=== PATIENT | male | born 1955 | race Caucasian/White ===

== ENCOUNTER 2017-01-13 09:00 | Day surgery (SDC) | payer OTHER ==
[2017-01-12 15:13] VITALS: BMI 29.9
[2017-01-13 09:23] VITALS: BP 115/75; PULSE 60; TEMP 97.8
[2017-01-13 09:26] LABS: BASOPHIL 1.7 % (0-2.0); EOSINOPHIL 7.4 % (0-4.5); MCH 29.8 pg (25.7-33.7); MEAN CELL VOLUME 90.3 fl (80-96); MEAN PLT VOLUME 7.7 fl (7.5-11.1); NEUTROPHILS 42.6 % (42.8-82.8); PLATELET COUNT 234 K/MM3 (134-434); RDW 13.8 % (11.9-15.9); WHITE BLOOD COUNT 5.1 K/mm3 (4.0-10.0)
[2017-01-13 09:30] LABS: INR 1.07 (0.82-1.09); PROTHROMBIN TIME (PATIENT) 11.8 SEC (9.98-11.88)
== END 2017-01-13 12:52 | disposition home or self-care (01) ==
LOC: JRADIR 09:00
PROVIDERS: ATTEND Specialist
PROC: BW4FZZZ Ultrasonography of Neck (ICD-10-PCS; principal; 2017-01-13)
PROC: 07B23ZX Excision of Left Neck Lymphatic, Percutaneous Approach, Diagnostic (ICD-10-PCS; 2017-01-13)
DX: R22.1 Localized swelling, mass and lump, neck (principal); Z53.8 Procedure and treatment not carried out for other reasons
CPT/HCPCS: 36415; 76536-TC; 85025; 85610

== ENCOUNTER 2018-06-02 22:02 | Emergency (ER) | payer OTHER ==
[2018-06-02 22:16] VITALS: BMI 29.9
--- NOTE | 2018-06-03 02:41 | PDOC ---
History of Present Illness - General History Source: Patient, Spouse Exam Limitations: No Limitations - History of Present Illness Initial Comments: 06/03/18 03:32 The patient is a 63 year old male, with a significant past medical history of mesothelioma, GERD, and recent 7 day admission for constipation at [facility] who presents to the emergency department with, abdominal pain and vomiting. As per patient and his at bedside, he was recently admitted to [facility] for constipation and discharged 06/01 on Lactulose, Milk of magnesia, miralax, and a suppository. notes at 10pm 06/02 the patient began vomiting with his abdominal pain. He denies any recent fevers, chills, headache or dizziness. He denies any recent chest pain or shortness of breath. He denies any recent dysuria, frequency, urgency or hematuria. Allergies: NKDA Primary Care Physician: Dr. Andrea Krause ([facility]) <Rm Onofre - Last Filed: 06/03/18 04:01> <Mercedez Perez - Last Filed: 06/03/18 06:15> - General Stated Complaint: Nausea/Vomiting Time Seen by Provider: 06/03/18 02:41 Past History <Rm Onofre - Last Filed: 06/03/18 04:01> - Past Medical History Cancer: Yes (MESOTHELIOMA) COPD: No GI Disorders: Yes (REFLUX) - Surgical History Abdominal Surgery: Yes (umbillical hernia, vasectomy) - Immunization History Immunization Up to Date: Yes - Suicide/Smoking/Psychosocial Hx Smoking History: Never smoked Have you smoked in the past 12 months: No Number of Cigarettes Smoked Daily: 0 Cigars Per Day: 0 Hx Alcohol Use: No Drug/Substance Use Hx: No Substance Use Type: None Hx Substance Use Treatment: No <Mercedez Perez - Last Filed: 06/03/18 06:15> - Past Medical History Allergies/Adverse Reactions: Allergies Allergy/AdvReac Type Severity Reaction Status Date / Time No Known Allergies Allergy Verified 06/02/18 22:16 Home Medications: Ambulatory Orders Omeprazole 20 mg PO DAILY 01/12/17 Review of Systems - Review of Systems Able to Perform ROS?: Yes Comments:: 06/03/18 03:32 GENERAL/CONSTITUTIONAL: No fever or chills. No weakness. HEAD, EYES, EARS, NOSE AND THROAT: No change in vision. No ear pain or discharge. No sore throat. +GASTROINTESTINAL: Nausea, vomiting, abdominal pain. GENITOURINARY: No dysuria, frequency, or change in urination. CARDIOVASCULAR: No chest pain or shortness of breath. RESPIRATORY: No cough, wheezing, or hemoptysis. MUSCULOSKELETAL: No joint or muscle swelling or pain. No neck or back pain. SKIN: No rash NEUROLOGIC: No headache, vertigo, loss of consciousness, or change in strength/ sensation. ENDOCRINE: No increased thirst. No abnormal weight change. HEMATOLOGIC/LYMPHATIC: No anemia, easy bleeding, or history of blood clots. ALLERGIC/IMMUNOLOGIC: No hives or skin allergy. All Other Systems: Reviewed and Negative <Rm Onofre - Last Filed: 06/03/18 04:01> *Physical Exam - Vital Signs Last Vital Signs Temp Pulse Resp BP Pulse Ox 98.1 F 79 18 113/75 97 06/02/18 22:10 06/02/18 22:10 06/02/18 22:10 06/02/18 22:10 06/02/18 22:10 <Rm Onofre - Last Filed: 06/03/18 04:01> - Vital Signs Last Vital Signs Temp Pulse Resp BP Pulse Ox 98.1 F 79 18 113/75 97 06/02/18 22:10 06/02/18 22:10 06/02/18 22:10 06/02/18 22:10 06/02/18 22:10 - Physical Exam Comments: 06/03/18 06:09 GENERAL: Awake, in no acute distress HEAD: No signs of trauma EYES: PERRLA, EOMI, sclera anicteric, conjunctiva clear, visual acuity grossly intact ENT:mucous membranes moist NECK: Normal ROM, supple, no lymphadenopathy, JVD LUNGS: Breath sounds equal, clear to auscultation bilaterally. No wheezes, and no crackles. Normal work of breathing. HEART: Regular rate and rhythm, normal S1 and S2, no murmurs, rubs or gallops ABDOMEN: Softly distended with diffuse tenderness, decreased bowel sounds all 4 quadrants, no rebound tenderness : CHEST WALL: BACK: No midline tenderness. EXTREMITIES: Normal range of motion, no edema. No clubbing or cyanosis. No erythema, or tenderness NEUROLOGICAL: Alert, and fully oriented x4, Cranial nerves II through XII grossly intact. Normal speech, normal gait. DTR's 2/4 bilaterally. SKIN: Warm, Dry, normal turgor, no rashes or lesions noted. <Mercedez Perez - Last Filed: 06/03/18 06:15> Moderate Sedation - Procedure Monitoring Vital Signs: Procedure Monitoring Vital Signs Temperature 98.1 F 06/02/18 22:10 Pulse Rate 79 06/02/18 22:10 Respiratory Rate 18 06/02/18 22:10 Blood Pressure 113/75 06/02/18 22:10 O2 Sat by Pulse Oximetry (%) 97 06/02/18 22:10 <Rm Onofre - Last Filed: 06/03/18 04:01> - Procedure Monitoring Vital Signs: Procedure Monitoring Vital Signs Temperature 98.1 F 06/02/18 22:10 Pulse Rate 79 06/02/18 22:10 Respiratory Rate 18 06/02/18 22:10 Blood Pressure 113/75 06/02/18 22:10 O2 Sat by Pulse Oximetry (%) 97 06/02/18 22:10 <Mercedez Perez - Last Filed: 06/03/18 06:15> Heart Score/ECG Review - ECG Intrepretation Rhythm: Regular Rhythm Comment:: 06/03/18 06:11 EKG shows a normal sinus rhythm at 80 bpm axis with no acute ST elevations There is diffuse T-wave flattening <Mercedez Perez - Last Filed: 06/03/18 06:15> ED Treatment Course - LABORATORY CBC & Chemistry Diagram: 06/03/18 03:19 06/03/18 03:19 <Rm Onofre - Last Filed: 06/03/18 04:01> - LABORATORY CBC & Chemistry Diagram: 06/03/18 03:19 06/03/18 03:19 <Mercedez Perez - Last Filed: 06/03/18 06:15> Medical Decision Making - Medical Decision Making 06/03/18 04:01 EXAM: CT ABDOMEN \T\ PELVIS CT W/O CONTR HISTORY: Abdominal pain and vomiting COMPARISON: None. FINDINGS: Abdomen Liver: Normal Spleen: Normal Pancreas: Normal Gallbladder: There is some increased attenuation in the gallbladder suggesting the presence of stones, or sludge Stomach: There is a small hiatal hernia Small bowel: Normal Large bowel: There is a large amount of retained fecal material in the colon with mild distention Appendix: Normal Adrenals:Normal Kidneys: Normal Vascular: Normal Lymphatic: Normal Peritoneal: No free peritoneal air or fluid Pelvis: Prostate: normal Rectum: Normal Bladder: Normal The inferior thorax: There is some circumferential pleural thickening surrounding the lingula and left lower lobe. There is some focal airspace consolidation and mild bronchiectasis in the dependent left lower lobe General: Skeletal: Normal Abdominal wall: Pelvic sidewall fat extends into the left inguinal canal. There is some stranding in the herniated fat IMPRESSION: Left lower lobe airspace opacity with some fibrosis and bronchiectasis possibly related to chronic aspiration or recurrent inflammation. Complex lobulated pleural fluid collection surrounding the lingula and left lower lobe. Density suggests solid features, possibly neoplastic involvement. Correlation with history and prior studies is recommended. One or more of the following dose reduction techniques were used: automated exposure control, adjustment of the mA and/or kV according to patient size, use of iterative reconstructive technique. Read by: Enrique Lawson MD <Rm Onofre - Last Filed: 06/03/18 04:01> - Medical Decision Making 06/03/18 06:12 63-year-old male with abdominal pain and vomiting CT scan suggests fecal impaction though there is evidence of gallbladder disease Patient does have right upper quadrant tenderness and clinically cholecystitis cannot be ruled out Right upper quadrant ultrasound has been ordered and is pending, to be signed out to day shift <Mercedez Perez - Last Filed: 06/03/18 06:15> *DC/Admit/Observation/Transfer - Attestations Scribe Attestion: 06/03/18 03:33 Documentation prepared by Rm Onofre, acting as medical billing manager for Mercedez Perez DO. <Rm Onofre - Last Filed: 06/03/18 04:01> - Attestations Physician Attestion: 06/03/18 06:14 I, Dr Mercedez Perez, attest that this document has been prepared under my direction and personally reviewed by me in its entirety. I further attest, that it accurately reflects all work, procedures and medical decision making performed by me. <Mercedez Perez - Last Filed: 06/03/18 06:15> Diagnosis at time of Disposition: Abdominal pain, Constipation - Referrals Referrals: Krystal Garcia MD [Primary Care Provider] - - Patient Instructions - Post Discharge Activity
[2018-06-03] MEDS ORDERED: morphine CARPU-JECT 4 MG/1 ML DISP.SYRIN IVPUSH ONE (02:42)
[2018-06-03] MEDS ORDERED: ONDANSETRON 4 MG/2 ML VIAL IVPUSH ONE ×2 (02:42→08:52)
[2018-06-03 03:27] LABS: HEMATOCRIT 34.9 % (35.4-49); HEMOGLOBIN 12.3 GM/dL (11.7-16.9); MCH 34.9 pg (25.7-33.7); MCHC 35.1 g/dl (32.0-35.9); MEAN CELL VOLUME 99.4 fl (80-96); PLATELET COUNT 208 K/MM3 (134-434); RBC 3.51 M/mm3 (4.00-5.60); RDW 14.5 % (11.9-15.9); WHITE BLOOD COUNT 4.4 K/mm3 (4.0-10.0)
[2018-06-03 03:56] LABS: ALK PHOS 213 U/L (45-117); ANION GAP 7 MMOL/L (8-16); BILIRUBIN,TOTAL 0.5 mg/dL (0.2-1); BLOOD UREA NITROGEN 8 mg/dL (7-18); CHLORIDE 102 mmol/L (98-107); CO2 29 mmol/L (21-32); CREATININE 0.9 mg/dL (0.55-1.3); GLUCOSE,RANDOM 111 mg/dL (74-106); LIPASE 128 U/L (73-393); POTASSIUM 3.7 mmol/L (3.5-5.1); SGOT/AST 53 U/L (15-37); SGPT/ALT 50 U/L (13-61); SODIUM 138 mmol/L (136-145); TOT PROT 6.9 g/dl (6.4-8.2)
[2018-06-03] MEDS ORDERED: ONDANSETRON 4 MG/2 ML VIAL ONE ×2 (04:38→08:56)
[2018-06-03] MEDS ORDERED: morphine SULFATE 4 MG/ML VIAL ONE (04:38)
[2018-06-03] MEDS ORDERED: SODIUM CHLORIDE 0.9% 500 ML INFUS.BAG IV ONE (08:44)
--- NOTE | 2018-06-03 11:55 | EKG ---
Test Reason : Blood Pressure : / mmHG Vent. Rate : 080 BPM Atrial Rate : 080 BPM P-R Int : 134 ms QRS Dur : 082 ms QT Int : 358 ms P-R-T Axes : 037 003 008 degrees QTc Int : 412 ms NORMAL SINUS RHYTHM NONSPECIFIC T WAVE ABNORMALITY ABNORMAL ECG WHEN COMPARED WITH ECG OF 04-MAR-2016 11:59, NO SIGNIFICANT CHANGE WAS FOUND Confirmed by NIKKI BULLOCK MD ([id number]) on 06/03/2018 11:55:01 AM Referred By: Confirmed By:NIKKI BULLOCK MD
[2018-06-03 14:02] VITALS: BP 98/70; PULSE 74; TEMP 2
== END 2018-06-03 14:16 | disposition home or self-care (01) ==
LOC: JER 22:02
PROC: 3E0337Z Introduction of Electrolytic and Water Balance Substance into Peripheral Vein, Percutaneous Approach (ICD-10-PCS; principal; 2018-06-02)
PROC: 3E033NZ Introduction of Analgesics, Hypnotics, Sedatives into Peripheral Vein, Percutaneous Approach (ICD-10-PCS; 2018-06-02)
PROC: 3E033GC Introduction of Other Therapeutic Substance into Peripheral Vein, Percutaneous Approach (ICD-10-PCS; 2018-06-02)
DX: K59.00 Constipation, unspecified (principal); R10.9 Unspecified abdominal pain
CPT/HCPCS: 36415; 74176-TC; 76705-TC; 80053; 82550; 83690; 84484; 85027; 93005; 93010; 99282-25